=== PATIENT | female | born 1950 | race Caucasian/White ===

== ENCOUNTER 2019-06-19 10:41 | Emergency (ER) | payer MEDICARE, OTHER ==
--- NOTE | 2019-06-19 11:40 | EDM.PDOC ---
ED HPI GENERAL MEDICAL PROBLEM - General Chief Complaint: Upper Extremity Injury/Pain Stated Complaint: LEFT SHOULDER INJURY Time Seen by Provider: 06/19/19 10:43 Source of Information: Reports: Patient History Limitations: Reports: No Limitations - History of Present Illness INITIAL COMMENTS - FREE TEXT/NARRATIVE: HISTORY OF PRESENT ILLNESS: Patient is a 69-year-old female who slipped and fell on the ice on Saturday. She believes that she fell onto her right-hand side but thinks she may have subsequently also hit the left side. Now complains of pain to the left paracervical neck area, left trapezius and left shoulder. Pain worse with motion, partially alleviated with rest. Denies any head trauma or loss of consciousness. No weakness or paresthesias. Pain radiates from the trapezius to the distal humerus region posteriorly. Denies any chest pain, dyspnea or abdominal pain. No other extremity pain. Patient denies any current pain to her right side. Is not on anticoagulants. REVIEW OF SYSTEMS: Other than the symptoms associated with the present events, the following is reported with regard to recent health: General: (-) fever. HENT: (-) congestion. Respiratory: (-) cough. Cardiovascular: (-) chest pain. GI: (-) abdominal pain. : (-) urinary complaints. Musculoskeletal: (+) bony pain as above Endocrine: (-) generalized weakness. Neurological: (-) paresthesia Skin: (-) rash PAST MEDICAL HISTORY: reviewed as per nursing notes SOCIAL HISTORY: reviewed as per nursing notes, MEDICATIONS: Per nurse's note ALLERGIES: Per nurse's note, reviewed by me PHYSICAL EXAMINATION: GENERALIZED APPEARANCE: well developed, well nourished in mild distress VITAL SIGNS: Per nurse's note, reviewed by me SKIN: Warm, dry; (-) cyanosis; (-) rash. HEAD: (-) scalp swelling, (-) tenderness. EYES: (-) conjunctival pallor, (-) scleral icterus. ENMT: (-) stridor; mucous membranes moist. NECK: (+)mild tenderness left paracervical, trapezius and midline. no step off or deformity. , (-) stiffness, BACK: scar from old incision. No TLS tenderness, step off or deformity PELVIS: no instability CHEST AND RESPIRATORY: (-) rales, (-) rhonchi, (-) wheezes; breath sounds equal bilaterally. HEART AND CARDIOVASCULAR: (-) irregularity; (-) murmur, (-) gallop. ABDOMEN AND GI: Soft; (-) tenderness, (-) guarding, (-) rebound, (-) palpable masses, EXTREMITIES: (-) deformity, (-) edema. (+) left clavicle, left ant shoulder and left proximal humerus tenderness. remainder of UE wnl and nontender. 2+ radial pulses. cap refill <2 sec. sensation intact. ROM of shoulder limited secondary to pain. 5/5+ Strength. NEURO AND PSYCH: Alert. Cranial nerves grossly intact; strength symmetric. gait steady DIAGNOSTICS: xray left clavicle, shoulder, humerus: as per radiologist report, reviewed by myself CT cervical spine: as per radiologist report, reviewed by myself EMERGENCY DEPARTMENT COURSE AND TREATMENT: Patient's condition remained stable during Emergency Department evaluation. Based on history, physical exam, and diagnostic evaluation, the patient appears to have symptoms consistent with a contusion. There was some suspicion for fracture, however imaging was negative. xray findings noted and relayed to patient. she has no elbow tenderness on exam and FROM of elbow. The patient appears otherwise well without obvious other injury. I recommended rest, ice, and pain medication when necessary. If the pain is not improving after 72 hours I recommended a follow-up appointment for repeat examination and possible further imaging. NVI at time of discharge. Given sling, but told not to use for more than 48 hours to avoid frozen shoulder. Encouraged early ROM. PLAN AND FOLLOW-UP: Patient received written and verbal instructions regarding this condition. Return to ED immediately with any new or worsening symptoms. Follow up to be arranged by patient with pcp in 1-2 days for further evaluation. Given discharge precautions. Patient expressed verbal understanding. 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: - Past Surgical History GI Surgical History: Reports: Cholecystectomy Female Surgical History: Reports: Section Dermatological Surgical History: Reports: Other (See Below) Social & Family History - Tobacco Use Smoking Status *Q: Never Smoker - Recreational Drug Use Recreational Drug Use: No Review of Systems - Review of Systems Review Of Systems: See Below (see dictation) ED EXAM, GENERAL - Physical Exam Exam: See Below (see dictation) Course - Vital Signs Last Recorded V/S: Last Vital Signs Temp 96.6 F 06/19/19 10:53 Pulse 87 06/19/19 10:53 Resp 18 06/19/19 10:53 BP 123/66 06/19/19 10:53 Pulse Ox 97 06/19/19 10:53 Departure - Departure Time of Disposition: 12:20 Disposition: Home, Self-Care 01 Condition: Good Clinical Impression: Contusion, shoulder /upper arm, Radiculopathy affecting upper extremity - Discharge Information *PRESCRIPTION DRUG MONITORING PROGRAM REVIEWED*: Not Applicable *COPY OF PRESCRIPTION DRUG MONITORING REPORT IN PATIENT JESSY: Not Applicable Prescriptions: Lidocaine 5% [Lidoderm 5%] 1 patch TOP DAILY PRN #6 patch PRN Reason: Pain Instructions: Radicular Pain, Shoulder Pain, [id number] Referrals: Sharmila Mancia ACCOUNT EXECUTIVE [Primary Care Provider] - Forms: ED Department Discharge Additional Instructions: The following information is given to patients seen in the emergency department who are being discharged to home. This information is to outline your options for follow-up care. We provide all patients seen in our emergency department with a follow-up referral. The need for follow-up, as well as the timing and circumstances, are variable depending upon the specifics of your emergency department visit. If you don't have a primary care physician on staff, we will provide you with a referral. We always advise you to contact your personal physician following an emergency department visit to inform them of the circumstance of the visit and for follow-up with them and/or the need for any referrals to a consulting specialist. The emergency department will also refer you to a specialist when appropriate. This referral assures that you have the opportunity for follow-up care with a specialist. All of these measure are taken in an effort to provide you with optimal care, which includes your follow-up. Under all circumstances we always encourage you to contact your private physician who remains a resource for coordinating your care. When calling for follow-up care, please make the office aware that this follow-up is from your recent emergency room visit. If for any reason you are refused follow-up, please contact the [facility] Emergency Department at and asked to speak to the emergency department charge nurse. Sepsis Event Note - Evaluation Sepsis Screening Result: No Definite Risk - Focused Exam Vital Signs: Vital Signs Temp Pulse Resp BP Pulse Ox 06/19/19 10:53 96.6 F 87 18 123/66 97 Date Exam was Performed: 06/19/19 Time Exam was Performed: 15:08
--- NOTE | 2019-06-19 12:14 | CR ---
Left humerus: 2 views of the left humerus were obtained. Comparison: No previous left humerus exam. Left shoulder prosthesis is noted of the reverse type. Lucency noted within the medial epicondyle at the elbow. This may represent artifact but difficult to exclude a fracture. No additional abnormality is seen other than osteopenia. Impression: 1. Questionable abnormality off the medial epicondyle at the elbow. Please correlate if patient is symptomatic to this region. If any further questions remain, recommend formal elbow exam. 2. Left shoulder prosthesis and osteopenia. 3. No additional abnormality is noted. Diagnostic code #3 This report was dictated in [place] Standard Time
--- NOTE | 2019-06-19 12:14 | CT ---
CT cervical spine Technique: Multiple axial sections were obtained from above C1 inferiorly to the bottom of T1. Reconstructed sagittal and coronal images were reviewed. Comparison: No prior cervical spine imaging. Findings: C1-C2: Degenerative change is noted between the dens and anterior arch of C1. Cystic change is noted within the dens which is felt to be degenerative in etiology. C2-C3: Posterior disc space narrowing is seen. Mild right-sided neural foraminal stenosis seen. Left neural foramen is patent. No discrete fracture is appreciated. C3-C4: Left neural foramina is patent. Mild right-sided neural foraminal stenosis is noted. Right-sided degenerative apophyseal change is noted. No central canal stenosis is seen. No fracture is appreciated. C4-C5: Moderate disc space narrowing is seen. Degenerative apophyseal change is noted bilaterally. Moderate bilateral neural foraminal stenosis is seen. No central canal stenosis is noted. Mild spondylolisthesis is seen due to degenerative apophyseal change. C5-C6: Severe disc space narrowing is seen. Moderate left-sided neural foraminal stenosis is noted. Mild right-sided neural foraminal stenosis is seen. No central canal stenosis is seen. No fracture is seen. C6-C7: Severe disc space narrowing is noted. No central canal stenosis or neural foraminal stenosis is seen. No fracture is seen. C7-T1: Mild spondylolisthesis is seen due to degenerative apophyseal change. No central canal stenosis or neural foraminal stenosis is seen. No fracture is seen. Impression: 1. Diffuse degenerative change as noted above. 2. No acute fracture is seen. Diagnostic code #3 This report was dictated in [place] Standard Time
--- NOTE | 2019-06-19 12:18 | CR ---
Left shoulder: 3 views left shoulder were obtained. Comparison: No prior shoulder imaging. Reverse type left shoulder prosthesis is noted. Components are aligned. No fracture or other bony abnormality seen. Osteopenia is present. Impression: 1. Reverse left shoulder prosthesis. Osteopenia. 2. No additional abnormality is seen on left shoulder study. Diagnostic code #2 This report was dictated in [place] Standard Time
== END 2019-06-19 12:30 | disposition home or self-care (01) ==
LOC: MW.ED 10:41
DX: S40.012A Contusion of left shoulder, initial encounter (principal); S40.022A Contusion of left upper arm, initial encounter; M54.10 Radiculopathy, site unspecified; E78.00 Pure hypercholesterolemia, unspecified; I10 Essential (primary) hypertension; Z79.899 Other long term (current) drug therapy; W00.0XXA Fall on same level due to ice and snow, initial encounter
CPT/HCPCS: 72125; 72125-26; 73030-26-LT; 73030-LT; 73060-26-LT; 73060-LT; 99283; 99284-25

== ENCOUNTER 2019-07-28 11:13 | Emergency (ER) | payer MEDICARE, OTHER ==
[2019-07-28] MEDS ORDERED: Lidocaine 1% with EPINEPHrine 1:100,000 10 ML MDV INJECT ONE (11:31)
[2019-07-28] MEDS ORDERED: Lidocaine 1% with EPINEPHrine 1:100,000 20 ML MDV ONE (11:33)
--- NOTE | 2019-07-28 11:38 | EDM.PDOC ---
ED HPI GENERAL MEDICAL PROBLEM - General Chief Complaint: ENT Problem Stated Complaint: NOSE BLEED Time Seen by Provider: 07/28/19 11:14 Source of Information: Reports: Patient History Limitations: Reports: No Limitations - History of Present Illness INITIAL COMMENTS - FREE TEXT/NARRATIVE: HISTORY AND PHYSICAL: History of present illness: Patient is a 69-year-old female who presents to the ED today with concern of a nosebleed that started just prior to arrival to the ED. 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 Patient states she is unable to squeeze her nostrils after the surgery due to pain/sutures so has not been able to get the nosebleed to stop. Patient states that it has not been bleeding heavily but is has been "small trickles". Patient states she has had issues in the past with nosebleeds and has had her nose cauterized in the past but has not had a nosebleed in quite some time. Patient denies any other symptoms or concerns. Patient denies fever, chills, chest pain, shortness of breath, or cough. Denies headache, neck stiff ness, change in vision, syncope, or near syncope. Denies nausea, vomiting, abdominal pain, diarrhea, constipation, or dysuria. Has not noted any blood in urine or stool. Patient has been eating and drinking appropriately. Review of systems: As per history of present illness and below otherwise all systems reviewed and negative. Past medical history: As per history of present illness and as reviewed below otherwise noncontributory. Surgical history: As per history of present illness and as reviewed below otherwise noncontributory. Social history: See social history for further information Family history: As per history of present illness and as reviewed below otherwise noncontributory. Physical exam: General: Patient is alert, oriented, and in no acute distress. Patient sitting comfortably on exam table. HEENT: Patient does have bandage in a triangular pattern over her entire nose with bruising and swelling of her lower eyes consistent with surgical history. There is a small amount of dried blood at the base of the left nare and small amount of bright red blood from the left nare. Otherwise, atraumatic, normocephalic, pupils equal and reactive bilaterally, negative for conjunctival pallor or scleral icterus, mucous membranes moist, TMs normal bilaterally, throat clear, neck supple, nontender, trachea midline. No drooling or trismus noted. No meningeal signs. No hot potato voice noted. Lungs: Clear to auscultation, breath sounds equal bilaterally, chest nontender. Heart: S1S2, regular rate and rhythm without overt murmur Abdomen: Soft, nondistended, nontender. Negative for masses or hepatosplenomegaly. Negative for costovertebral tenderness. Pelvis: Stable nontender. Genitourinary: Deferred. Rectal: Deferred. Skin: Intact, warm, dry. No lesions or rashes noted. Extremities: Atraumatic, negative for cords or calf pain. Neurovascular unremarkable. Neuro: Awake, alert, oriented. Cranial nerves II through XII unremarkable. Cerebellum unremarkable. Motor and sensory unremarkable throughout. Exam nonfocal. Notes: Unable to adequately apply pressure / squeeze nostril to stop bleeding due to surgery of her nose yesterday and pain of this area. Will apply pledget to nostril with lidocaine/epinephrine into the nostril to apply pressure internally for 15 minutes and reassess bleeding. After removal of pledget, began bleeding more extensively. Rhino Rocket 5.5cm placed in left nare without difficulty and Balloon inflated with 4-5cc of air. Sales Superintendent cuff assessed and firm but not hard. Patient tolerated procedure well. Bleeding stopped and patient monitored for additional 20 minutes and bleeding remained stopped. Dressing from surgery yesterday removed as it was covered with blood and underlying sutures are healing well for recent surgery without drainage or erythema. Sterile dressing reapplied by nursing staff. Patient states she has an senior research associate that she is able to see this week (1-3 days) for follow up in [place] that she sees routinely. Discussed the importance of follow-up with the ENT as well as her primary care provider. Voices understanding and is agreeable to plan of care. Denies any further questions or concerns at this time. Diagnostics: None Therapeutics: Lidocaine w/ epi and nasal pledget, Rhino rocket Prescription: None Impression: Epistaxis, left Plan: 1. Return to the ED in 24-72 hours to get packing removed. Follow up with the ENT specialist and primary care provider as scheduled and as discussed. 2. Return to the ED as needed and as discussed. Definitive disposition and diagnosis as appropriate pending reevaluation and review of above. 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 ED EXAM, GENERAL - Physical Exam Exam: See Below (see dictation) Course - Vital Signs Last Recorded V/S: Last Vital Signs Temp 98.1 F 07/28/19 11:29 Pulse 87 07/28/19 11:29 Resp 18 07/28/19 11:29 BP 174/95 H 07/28/19 11:29 Pulse Ox 99 07/28/19 11:29 - Orders/Labs/Meds Meds: Medications Discontinued Medications Generic Name Dose Route Start Last Admin Trade Name Radha PRN Reason Stop Dose Admin Lidocaine/Epinephrine 10 ml 07/28/19 11:31 07/28/19 11:39 Xylocaine 1% With Epinephrine 1:100,000 INJECT 07/28/19 11:32 Not Given ONETIME ONE Lidocaine/Epinephrine Confirm 07/28/19 11:33 07/28/19 11:38 Xylocaine 1% With Epinephrine 1:100,000 Administered 07/28/19 11:34 20 ml Dose Administration 20 ml .ROUTE .STK-MED ONE Departure - Departure Time of Disposition: 13:27 Disposition: Home, Self-Care 01 Clinical Impression: Epistaxis - Discharge Information Instructions: Nosebleed, [id number] Referrals: PCP,None [Primary Care Provider] - Forms: ED Department Discharge Additional Instructions: The following information is given to patients seen in the emergency department who are being discharged to home. This information is to outline your options for follow-up care. We provide all patients seen in our emergency department with a follow-up referral. The need for follow-up, as well as the timing and circumstances, are variable depending upon the specifics of your emergency department visit. If you don't have a primary care physician on staff, we will provide you with a referral. We always advise you to contact your personal physician following an emergency department visit to inform them of the circumstance of the visit and for follow-up with them and/or the need for any referrals to a consulting specialist. The emergency department will also refer you to a specialist when appropriate. This referral assures that you have the opportunity for follow-up care with a specialist. All of these measure are taken in an effort to provide you with optimal care, which includes your follow-up. Under all circumstances we always encourage you to contact your private physician who remains a resource for coordinating your care. When calling for follow-up care, please make the office aware that this follow-up is from your recent emergency room visit. If for any reason you are refused follow-up, please contact the [facility] Emergency Department at and asked to speak to the emergency department charge nurse. [facility] [address] [place] [id number] [address] [facility] Ears, Nose, and Throat Specialist, Dr. Jose Juan Woodard [phone] [facility] [address] 1. Return to the ED in 24-72 hours to get packing removed. Follow up with the ENT specialist and primary care provider as scheduled and as discussed. 2. Return to the ED as needed and as discussed. Sepsis Event Note - Evaluation Sepsis Screening Result: No Definite Risk - Focused Exam Vital Signs: Vital Signs Temp Pulse Resp BP Pulse Ox 07/28/19 11:29 98.1 F 87 18 174/95 H 99 Date Exam was Performed: 07/28/19 Time Exam was Performed: 13:18
[2019-07-28] MEDS ORDERED: traMADol 50 MG Tab PO ONE (14:41)
[2019-07-28] MEDS ORDERED: Acetaminophen 500 MG Tab PO ONE (15:16)
== END 2019-07-28 16:05 | disposition home or self-care (01) ==
LOC: MW.ED 11:13
DX: R04.0 Epistaxis (principal); I10 Essential (primary) hypertension; E78.00 Pure hypercholesterolemia, unspecified; Z79.899 Other long term (current) drug therapy
CPT/HCPCS: 30903; 99283; A9270

== ENCOUNTER 2021-06-19 13:56 | Emergency (ER) | payer MEDICARE, OTHER ==
[2021-06-19] MEDS ORDERED: Sodium Chloride 0.9% 2.5 ML Syringe FLUSH PRN (14:11)
[2021-06-19] MEDS ORDERED: Sodium Chloride 0.9% 10 ML Syringe FLUSH PRN (14:11)
[2021-06-19] MEDS ORDERED: Cyclobenzaprine 10 MG Tab PO ONE (14:24)
[2021-06-19] MEDS ORDERED: traMADol 50 MG Tab PO ONE (14:24)
[2021-06-19] MEDS ORDERED: Ketorolac 30 MG/ML SDV IVPUSH ONE (14:24)
[2021-06-19 14:48] LABS: BLOOD UREA NITROGEN,BUN 12 mg/dL (7.0-18.0); CARBON DIOXIDE,CO2 25.6 mmol/L (21.0-32.0); CHLORIDE,CL 100 mmol/L (98-107); GLUCOSE RANDOM 123 mg/dL (74-106); POTASSIUM,K 4.5 mmol/L (3.5-5.1); SODIUM,NA 139 mmol/L (136-145)
== END 2021-06-19 16:19 | disposition home or self-care (01) ==
LOC: MW.ED 13:56
DX: R07.89 Other chest pain (principal); M25.512 Pain in left shoulder; E78.00 Pure hypercholesterolemia, unspecified; I10 Essential (primary) hypertension; Z79.899 Other long term (current) drug therapy
CPT/HCPCS: 36415; 71045; 80053; 84484; 85025; 93005; 96374; 99285; A9270; J1885